=== PATIENT | female | born 1950 | race Caucasian/White ===

== ENCOUNTER 2024-04-29 07:53 | Outpatient (CLI) | payer MEDICARE, MEDICAID ==
--- NOTE | 2024-04-30 09:38 | Mammography Report ---
BILATERAL DIGITAL SCREENING MAMMOGRAM 3D/2D: 04/29/2024 CLINICAL: Baseline exam. Routine screening. Family history of breast cancer. No prior exams were available for comparison. There are scattered areas of fibroglandular density in both breasts (category b / 25%-50% glandular t issue). There is an irregular high density focal asymmetry with diffuse fine calcifications in the left breas t at 1 o'clock middle depth. There is architectural distortion associated with the focal asymmetry. No other significant masses, calcifications, or other findings are seen in either breast. IMPRESSION: INCOMPLETE: NEEDS ADDITIONAL IMAGING EVALUATION The irregular high density focal asymmetry in the left breast is indeterminate. Additional views wit h possible ultrasound are recommended. Based on the Tyrer Cuzick model (a risk assessment model) the patient's lifetime risk is 9.8% and her 10 year risk is 6.8%. According to the ACR, ACS, and NCCN guidelines, an annual breast MRI exam tere g with mammogram is recommended if the patient's lifetime risk is 20% or greater. This exam was interpreted at Station ID: [id number]. NOTE: For mammograms, a report in lay terms will be sent to the patient. Approximately 15% of breast malignancies will not be visualized mammographically. In the management of a palpable breast mass, a negative mammogram must not discourage biopsy of a clinically suspicious lesion. Electronically Signed By: Zahra davis/violeta:04/29/2024 17:04:49 ACR BI-RADS Category 0: Incomplete 3340F PARENCHYMAL PATTERN: (A) - The breast(s) demonstrate(s) scattered fibroglandular densities. BI-RADS CATEGORY: (0) - 0 Mammo and [place] [id number] Immediate follow-up LATERALITY: (B)
== END 2024-04-29 07:54 | disposition home or self-care (01) ==
LOC: DI.N 07:53
DX: Z12.31 Encounter for screening mammogram for malignant neoplasm of breast (principal); Z80.3 Family history of malignant neoplasm of breast; R92.323 Mammographic fibroglandular density, bilateral breasts; R92.8 Other abnormal and inconclusive findings on diagnostic imaging of breast

== ENCOUNTER 2024-04-29 08:02 | Outpatient (CLI) | payer MEDICARE, MEDICAID ==
[2024-04-29 12:13] LABS: BASOPHILS # (AUTO) 0.1 10^3/uL (0.0-0.1); EOSINOPHILS # (AUTO) 1.4 10^3/uL (0.0-0.7); EOSINOPHILS % (AUTO) 12.7 %; LYMPHOCYTES # (AUTO) 2.2 10^3/uL (1.5-3.5); LYMPHOCYTES % (AUTO) 20.5 %; MEAN CORPUSCULAR HEMOGLOBIN 28.6 pg (27.0-31.0); MEAN CORPUSCULAR HGB CONC 31.1 g/dL (32.0-36.0); MEAN PLATELET VOLUME 10.1 fL (7.9-10.8); MONOCYTES # (AUTO) 0.8 10^3/uL (0.0-1.0); MONOCYTES % (AUTO) 7.1 %; NEUTROPHILS # (AUTO) 6.4 10^3/uL (1.5-6.6); NEUTROPHILS % (AUTO) 58.4 %; PLT - PLATELET COUNT 588 10^3/uL (130-450); RED BLOOD COUNT 4.89 10^6/uL (4.20-5.40); RED CELL DISTRIBUTION WIDTH 15.9 % (12.0-15.0); WHITE BLOOD COUNT 10.9 x10^3/uL (4.8-10.8)
[2024-04-29 12:20] LABS: RBC MORPHOLOGY (MULTIPLE) 3+ ANISOCYTOSIS (NORMAL); SLIDE REVIEW? Indicated
[2024-04-29 12:35] LABS: ALBUMIN 4.4 g/dL (3.2-5.5); ALBUMIN/GLOBULIN RATIO 1.5 (1.0-2.2); ALKALINE PHOSPHATASE 94 IU/L (42-121); ALT ALANINE AMINOTRANSFERASE 19 IU/L (10-60); AST ASPARTATE AMINOTRANSFERASE 29 IU/L (10-42); BILIRUBIN,TOTAL 0.3 mg/dL (0.2-1.0); BUN - BLOOD UREA NITROGEN 24 mg/dL (6-20); CALCIUM 9.9 mg/dL (8.5-10.3); CARBON DIOXIDE - CO2 28 mmol/L (21-32); CHLORIDE 104 mmol/L (101-111); CHOL/HDL RATIO 2.9 (<4.4); CHOLESTEROL 170 mg/dL; CREATININE 0.8 mg/dL (0.6-1.3); GFR - MDRD 71 (>89); GLUCOSE 82 mg/dL (74-104); HDL CHOLESTEROL 58 mg/dL; LDL CHOLESTEROL,CALCULATED 93 mg/dL; LDL/HDL RATIO 1.6 (<4.4); POTASSIUM 4.5 mmol/L (3.5-4.5); SODIUM 138 mmol/L (135-145); TOTAL PROTEIN 7.4 g/dL (6.4-8.9); TRIGLYCERIDES 93 mg/dL; VLDL CHOLESTEROL 19 mg/dL
[2024-04-29 12:41] LABS: THYROID STIMULATING HORMONE 2.27 uIU/mL (0.34-5.60)
[2024-04-29 14:15] LABS: ESTIMATED AVERAGE GLUCOSE 103 mg/dL (70-100); HEMOGLOBIN A1c% 5.2 % (4.27-6.07)
== END 2024-04-29 08:03 | disposition home or self-care (01) ==
LOC: LAB.N 08:02
PROVIDERS: ATTEND Family Medicine
DX: Z13.6 Encounter for screening for cardiovascular disorders (principal); Z78.0 Asymptomatic menopausal state; Z86.59 Personal history of other mental and behavioral disorders
CPT/HCPCS: 36415; 80053; 80061; 83036; 83721; 84443; 85025

== ENCOUNTER 2024-04-29 09:47 | Outpatient (CLI) | payer MEDICARE, MEDICAID ==
--- NOTE | 2024-04-29 14:23 | XRAY Report ---
PROCEDURE: Hips w/Pelvis 2-3V BL INDICATIONS: RIGHT HIP PAIN TECHNIQUE: 3 view(s) of the hip were acquired. COMPARISON: None. FINDINGS: Bones: Severe nrik-ic-wyfd right hip DJD. Mild left hip DJD. No fractures or dislocations. No suspi cious bony lesions. The visualized pelvic ring appears intact. Soft tissues: No suspicious soft tissue calcifications or masses. Evaluate in the pelvis. IMPRESSION: Severe right hip DJD. Mild left hip DJD. Device in the pelvis. This could represent IUD or tubal ligation device. Reviewed by: Rudy Chicas MD on 04/29/2024 2:21 PM PDT Approved by: Rudy Chicas MD on 04/29/2024 2:21 PM PDT Station ID: [id number]
== END 2024-04-29 09:48 | disposition home or self-care (01) ==
LOC: DI 09:47
PROVIDERS: ATTEND Family Medicine
DX: M16.0 Bilateral primary osteoarthritis of hip (principal); Z96.9 Presence of functional implant, unspecified; Z13.6 Encounter for screening for cardiovascular disorders; Z78.0 Asymptomatic menopausal state; Z86.59 Personal history of other mental and behavioral disorders
CPT/HCPCS: 36415; 80053; 80061; 83036; 83721; 84443; 85025

== ENCOUNTER 2024-05-03 09:43 | Outpatient (CLI) | payer MEDICARE, MEDICAID ==
--- NOTE | 2024-05-03 17:40 | DEXA Report ---
PROCEDURE: Dexa Spine and/or Hip INDICATIONS: POST MENOPAUSAL TECHNIQUE: Dual energy x-ray absorptiometry (DXA) was performed on a vozero System. Regions measur ed are the AP Spine, femoral neck, and if needed forearm. COMPARISON: None FINDINGS: Lumbar Spine: Bone Mineral Density: 1.110 g/cm/cm,T score: -0.6. Normal Left Femoral Neck: Bone Mineral Density: 0.657 g/cm/cm, T score: -2.7, osteoporosis. Left Hip: Bone Mineral Density: 0.686 g/cm/cm,T score: -2.6. Osteoporosis (T score greater or equal to -1.0: NORMAL) (T score from -1.1 to -2.4: OSTEOPENIA) (T score less than or equal to -2.5 to: OSTEOPOROSIS) Impression: By WHO criteria, this patient has osteoporosis. Patient is at high risk of fracture. Patients with diagnosis of osteoporosis or osteopenia should have regular bone mineral density assess ment. For those eligible for Medicare, routine testing is allowed once every 2 years. Testing frequ ency can be increased for patients who have rapidly progressing disease or for those who are receivin g medical therapy to restore bone mass. Reviewed by: Zahra Busby MD on 05/03/2024 5:39 PM PDT Approved by: Zahra Busby MD on 05/03/2024 5:39 PM PDT Station ID: [id number]
== END 2024-05-03 09:44 | disposition home or self-care (01) ==
LOC: DI 09:43
PROVIDERS: ATTEND Family Medicine
DX: M81.0 Age-related osteoporosis without current pathological fracture (principal); Z78.0 Asymptomatic menopausal state

== ENCOUNTER 2024-05-14 08:32 | Outpatient (CLI) | payer MEDICARE, MEDICAID ==
--- NOTE | 2024-05-17 08:27 | Mammography Report ---
UNILATERAL LEFT DIGITAL DIAGNOSTIC MAMMOGRAM 3D/2D WITH SPOT COMPRESSION AND MAGNIFICATION: 05/14/2024 CLINICAL: Patient returns today to evaluate a focal asymmetry in the left breast. Comparison is made to exam dated: 04/29/2024 mammogram - [facility]. There are scattered areas of fibroglandular density in the left breast (category b / 25%-50% glandula r tissue). There is a 1.2 cm irregular high density mass with a spiculated and indistinct margin and grouped fin e calcifications in the left breast at 1 o'clock middle depth. This is seen in additional views. There also are diffuse fine heterogeneous calcifications in the left breast. No other significant masses or calcifications are seen in the breast. IMPRESSION: INCOMPLETE: NEEDS ADDITIONAL IMAGING EVALUATION The 1.2 cm irregular high density mass with calcifications in the left breast at 1 o'clock middle dep th is indeterminate. An ultrasound is recommended. The diffuse fine heterogeneous calcifications in the left breast are suspicious of malignancy. No cl ear biopsy target is seen for these calcifications separate from the mass at this time. Recommend fur ther evaluation be deferred pending workup of the mass described above. If the biopsy is positive, th en recommend breast MRI to evaluate for extent of disease. If biopsy results are negative, then recom mend stereotactic biopsy of the calcifications. Based on the Tyrer Cuzick model (a risk assessment model) the patient's lifetime risk is 9.8% and her 10 year risk is 6.8%. According to the ACR, ACS, and NCCN guidelines, an annual breast MRI exam tere g with mammogram is recommended if the patient's lifetime risk is 20% or greater. This exam was interpreted at Station ID: [id number]. NOTE: For mammograms, a report in lay terms will be sent to the patient. Approximately 15% of breast malignancies will not be visualized mammographically. In the management of a palpable breast mass, a negative mammogram must not discourage biopsy of a clinically suspicious lesion. Electronically Signed By: Flako Harden M.D. ar/:05/14/2024 15:36:21 ACR BI-RADS Category 0: Incomplete 3340F PARENCHYMAL PATTERN: (A) - The breast(s) demonstrate(s) scattered fibroglandular densities. BI-RADS CATEGORY: (0) - 0 Ultrasound [id number] Immediate follow-up LATERALITY: (L)
--- NOTE | 2024-05-17 08:27 | Ultrasound Report ---
LIMITED ULTRASOUND OF LEFT BREAST AND AXILLA: 05/14/2024 CLINICAL: Patient returns today to evaluate a focal asymmetry in the left breast. Comparison is made to exams dated: 05/14/2024 mammogram and 04/29/2024 mammogram - [facility]. Color flow and real-time ultrasound of the left breast 1 o'clock, and axilla regions were performed. Meyer scale images of the real-time examination were reviewed. There is a 1.2 cm x 0.8 cm x 0.8 cm irregular mass with an indistinct and spiculated margin in the le ft breast at 1 o'clock middle depth 6 cm from the nipple. This irregular mass is hypoechoic with pos terior acoustic shadowing. This correlates with mammography findings. Color flow imaging demonstrat es that there is vascularity present. There also are at least two left axillary lymph nodes with eccentric cortical thickening. These left axillary lymph nodes display fatty hilum. Additionally, there is a benign 0.5 cm x 0.4 cm x 0.3 cm intramammary lymph node in the left breast a t 1 o'clock posterior depth 6 cm from the nipple. This correlates as an incidental finding. IMPRESSION: SUSPICIOUS OF MALIGNANCY The 1.2 cm x 0.8 cm x 0.8 cm irregular mass in the left breast at 1 o'clock middle depth is at a high suspicion for malignancy. An ultrasound guided biopsy is recommended. The findings and recommendat ions were discussed with the patient and patient's daughter in person at the time of the exam. If bi opsy is positive, recommend breast MRI to evaluate for extent of disease. The left axillary lymph nodes with eccentric cortical thickening are at a low suspicion for malignanc y. An ultrasound guided biopsy is recommended. Recommend radiologist discretion at the time of the procedure to select the most suspicious axillary lymph node for biopsy. The 0.5 cm x 0.4 cm x 0.3 cm incidental intramammary lymph node in the left breast at 1 o'clock poste rior depth is benign. This exam was interpreted at Station ID: [id number]. Electronically Signed By: Flako Harden M.D. ar/:05/14/2024 15:44:42 Ultrasound BI-RADS: 4c High suspicion of malignancy BI-RADS CATEGORY: (4c) - High Susp Biopsy [id number] Immediate follow-up LATERALITY: (L)
== END 2024-05-14 08:33 | disposition home or self-care (01) ==
LOC: DI 08:32
PROVIDERS: ATTEND Family Medicine
DX: N63.21 Unspecified lump in the left breast, upper outer quadrant (principal)

== ENCOUNTER 2024-06-07 09:31 | Outpatient (CLI) | payer MEDICARE, MEDICAID ==
[~2024-06-07 09:31] MED LIST: LIDOCAINE 1%-EPI 1:100000 20 ML MDV ONE; LIDOCAINE-MPF 1% 5 ML VIAL ONE
[2024-06-07] MEDS: LIDOCAINE-MPF 1% 5 ML VIAL TD ONE (11:41)
[2024-06-07] MEDS: LIDOCAINE 1%-EPI 1:100000 20 ML MDV SUBQ ONE (11:42)
--- NOTE | 2024-06-08 09:05 | Mammography Report ---
UNILATERAL LEFT DIGITAL DIAGNOSTIC MAMMOGRAM - LEFT BREAST POST-PROCEDURE IMAGING FOR MARKER ANN CLINICAL: Post left breast ultrasound biopsy clip placement imaging. Comparison is made to exams dated: 05/14/2024 mammogram and 04/29/2024 mammogram - [facility]. There are scattered areas of fibroglandular density in the left breast (category b / 25%-50% glandula r tissue). There is a marker clip in the appropriate position in the left breast at 1 o'clock middle depth. Thi s marker clip placement is at the biopsy site. This correlates with ultrasound findings and the biop sy. IMPRESSION: POST PROCEDURE MAMMOGRAM FOR MARKER PLACEMENT There was a successful marker clip placement in the left breast middle depth. Based on the Tyrer Cuzick model (a risk assessment model) the patient's lifetime risk is 9.8% and her 10 year risk is 6.8%. According to the ACR, ACS, and NCCN guidelines, an annual breast MRI exam tere g with mammogram is recommended if the patient's lifetime risk is 20% or greater. This exam was interpreted at Station ID: [id number]. NOTE: For mammograms, a report in lay terms will be sent to the patient. Approximately 15% of breast malignancies will not be visualized mammographically. In the management of a palpable breast mass, a negative mammogram must not discourage biopsy of a clinically suspicious lesion. Electronically Signed By: Kevin Pena M.D. aty/:06/07/2024 16:51:29 ACR BI-RADS Category Post-procedure mammogram for marker placement PARENCHYMAL PATTERN: (A) - The breast(s) demonstrate(s) scattered fibroglandular densities. BI-RADS CATEGORY: () - Unspecified - other recall n/a LATERALITY: (B)
--- NOTE | 2024-06-10 14:32 | Ultrasound Report ---
ULTRASOUND GUIDED BIOPSY LEFT BREAST USING VACUUM DEVICE WITH MARKING DEVICE INSERTED AND POST MAMMOG RAPHIC IMAGIN06/07/2024 CLINICAL: Left breast mass. PATIENT CONSENT: Risks (minor bleeding, infection, vasovagal reaction and repeat procedure), benefits and alternatives were explained to the patient and written informed consent was obtained. Correlation is made to exams dated: 06/07/2024 mammogram, 05/14/2024 ultrasound, 05/14/2024 mammogram, a nd 04/29/2024 mammogram - [facility]. An ultrasound guided biopsy using real-time ultrasound was performed for the 1.1 cm x 0.7 cm x 0.8 cm irregular shaped mass located in the left breast at 1 o'clock middle depth 6 cm from the nipple. Th is was described on the previous mammography and ultrasound reports. The skin was prepped in the usu al manner. Local anesthetic was administered to the access site. A skin chen was made in the breast . The abnormality was approached from the lateral aspect. A 13 gauge biopsy needle was placed adjac ent to the abnormality under ultrasound guidance. Once the needle was documented to be in the [facility] location, seven specimens were obtained using the Mammotome biopsy system. A clip was inserted int o the biopsy cavity. A sterile dressing was applied to the access site. Post procedure mammographic imaging demonstrates the location device at the targeted area. The specimens were sent to the labor atory for pathological analysis. Images of the left axilla showed no suspicious axillary lymph nodes to biopsy. Attention will be made on subsequent exams. IMPRESSION: ULTRASOUND GUIDED BIOPSY MALIGNANT Ultrasound guided biopsy of the 1.1 cm x 0.7 cm x 0.8 cm mass in the left breast at 1 o'clock middle depth 6 cm from the nipple was successful. Pathology revealed malignant invasive lobular carcinoma (ILC), which is concordant with imaging. Of n ote, there are extensive suspicious segmental calcifications in the right breast upper outer quadrant . Recommend breast MRI for further evaluation of extent of disease. Recommend surgical and oncologica l consultation. This exam was interpreted at Station ID: [id number]. Kevin Guzmán M.D., Ph.D. at,/:06/10/2024 11:33:40 BI-RADS CATEGORY: () - Unspecified - other recall n/a LATERALITY: (B)
== END 2024-06-07 09:32 | disposition home or self-care (01) ==
LOC: DI 09:31
PROVIDERS: ATTEND Family Medicine
DX: C50.412 Malignant neoplasm of upper-outer quadrant of left female breast (principal); Z17.0 Estrogen receptor positive status [ER+]
CPT/HCPCS: 19083

== ENCOUNTER 2024-06-17 08:00 | Outpatient (CLI) | payer MEDICARE, MEDICAID ==
--- NOTE | 2024-06-17 21:01 | XRAY Report ---
PROCEDURE: Hip w/Pelvis 2-3V RT INDICATIONS: HIP PAIN, RIGHT, CHRONIC TECHNIQUE: AP view the pelvis and right hip, lateral view of the right hip COMPARISON: Pelvis and bilateral hip x-ray 04/29/2024 FINDINGS: Severe right hip osteoarthritis with femoral head remodeling and mild sclerosis at the superior-later al femoral head. No articular surface collapse at the right hip. The left hip and sacroiliac joints are preserved. Tubal ligation devices along the left hemipelvis. Faint vascular calcifications. IMPRESSION: Severe right hip osteoarthritis with mild sclerosis at the superior-lateral femoral head, which can b e seen with osteonecrosis. Reviewed by: Anastacio Miranda MD on 06/17/2024 8:59 PM PDT Approved by: Anastacio Miranda MD on 06/17/2024 8:59 PM PDT Station ID: [id number]
== END 2024-06-17 23:59 | disposition home or self-care (01) ==
LOC: DI.WOS 08:00
PROVIDERS: ATTEND Physician Assistant Surgical
DX: M16.11 Unilateral primary osteoarthritis, right hip (principal)